=== PATIENT | male | born 1990 | race African-American/Black ===

== ENCOUNTER 2020-09-02 11:26 | Emergency (ER) | payer OTHER ==
[~2020-09-02] VITALS: Ht 170.2 cm; Wt 68.0 kg
[2020-09-02] MEDS ORDERED: ADDERALL 20 MG20 MG PO (11:35)
[2020-09-02] MEDS ORDERED: PERCOCET 5-3251 EACH PO (12:34)
[2020-09-02] MEDS ORDERED: DOXYCYCLINE 10100 MG PO (12:34)
[2020-09-02 12:43] VITALS: BP 85/47
== END 2020-09-02 12:45 | disposition home or self-care (01) ==
LOC: ER 11:26
DX: L02.31 Cutaneous abscess of buttock (principal); Z79.899 Other long term (current) drug therapy